=== PATIENT | female | born 1965 | race Asian ===

== ENCOUNTER → 2016-11-10 | Outpatient (CLI) | payer BC ==
--- NOTE | 2016-11-11 09:11 | RADRPT ---
PROCEDURE: XR right knee. CLINICAL INDICATION: Knee pain TECHNIQUE: AP weightbearing, PA weightbearing, lateral weightbearing and sunrise views are availab le for review. COMPARISON: None available FINDINGS: There is mild to moderate osteoarthrosis involving the medial tibial femoral compartment, lateral ti bial femoral compartment and patellofemoral compartment. This is associated with joint space narrowi ng, subchondral sclerosis and osteophytosis.. There is a small suprapatellar joint effusion. There is otherwise normal mineralization, architecture and alignment. No fractures are identified. No osseous lesions are identified. The soft tissues are unremarkable. IMPRESSION: Mild to moderate osteoarthrosis involving the medial tibial femoral compartment, lateral tibial femo ral compartment and patellofemoral compartment. Small suprapatellar joint effusion RPTAT: HGDB .Jericho Brown MD, MD Date Time Electronically viewed and signed by .Jericho Brown MD, on 11/11/2016 09:11 .B/
--- NOTE | 2016-11-11 09:12 | RADRPT ---
PROCEDURE: XR Chest. CLINICAL INDICATION: Preoperative chest TECHNIQUE: Chest PA. COMPARISON: No comparison available. FINDINGS: The mediastinal structures are unremarkable. The heart is normal in size and configuration. The pu lmonary vascularity is normal. The lung laureano are unremarkable. No consolidation is identified. The pleural spaces are unremarkable. The axial skeleton is unremarkable. IMPRESSION: No active intrathoracic disease. RPTAT: HGDB .Jericho Brown MD, MD Date Time Electronically viewed and signed by .Jericho Brown MD, on 11/11/2016 09:11 .B/
== END | disposition home or self-care (01) ==
LOC: HKI 11:25
PROVIDERS: ATTEND Orthopaedic Surgery
DX: M25.561 Pain in right knee (principal); S83.231D Complex tear of medial meniscus, current injury, right knee, subsequent encounter; S83.271D Complex tear of lateral meniscus, current injury, right knee, subsequent encounter
CPT/HCPCS: 71010; 73564; G0463

== ENCOUNTER 2016-11-16 06:10 | Day surgery (SDC) | payer BC ==
[2016-11-15 15:11] VITALS: BMI 26.8
[~2016-11-16] VITALS: Ht 165.1 cm; Wt 74.0 kg
[2016-11-16] VITALS (15 sets, daily range): BP systolic 115–147; BP diastolic 60–80; PULSE 52–66; RESP 12–20; Ht 165.1 cm; Wt 74.0 kg
[~2016-11-16 06:10] MED LIST: CEFAZOLIN 2GM/50 ML (PMX) 50 ML X1 BEFORE INCISION IVPB ONE; CELECOXIB 400 MG PO X1 DOSE PO ONE; LACTATED RINGER'S 1,000 ML IV SCH; PREGABALIN 300 MG PO X1 PO ONE; oxyCODONE (CR) 10 MG TAB [oxyCONTIN] X1 DOSE PO ONE; traMADOL 50 MG TAB X 1 DOSE PO ONE
[2016-11-16] MEDS ORDERED: EPHEDrine SULFATE 50 MG/5 ML SYG ONE (07:00)
--- NOTE | 2016-11-16 07:25 | HPN ---
Date/Time of Note Date/Time of Note DATE: 11/16/16 TIME: 07:24 Interval H&P Admission Note Pt. seen H&P reviewed: No system changes No change from H&P on 11/12/16 by JAYLAN Dawn MD November 16, 2016 07:25
[2016-11-16] MEDS ORDERED: PROPOFOL 20 ML ONE (09:36)
[2016-11-16] MEDS ORDERED: MIDAZOLAM 1 MG/ML 2 ML INJ ONE (09:37)
[2016-11-16] MEDS ORDERED: FENTAnyl 50 MCG/ML VIAL ONE (09:37)
[2016-11-16] MEDS ORDERED: LIDOCAINE 1% (MDV) 20 ML INJ ONE (09:37)
[2016-11-16] MEDS ORDERED: KETOROLAC 30 MG INJ ONE ×2 (09:39→10:48)
[2016-11-16] MEDS ORDERED: morphine SULFATE/PF (10 MG/10 ML) INJ ONE (09:39)
[2016-11-16] MEDS ORDERED: ROPIVACAINE 0.5 % 30 ML VIAL ONE (09:39)
[2016-11-16] MEDS ORDERED: LIDOCAINE 0.5%/EPI (MDV) 50 ML INJ ONE (09:51)
[2016-11-16] MEDS ORDERED: PHENYLephrine (100 MCG/ML) 5ML SYG ONE (09:59)
[2016-11-16] MEDS ORDERED: ONDANSETRON 4 MG INJ ONE (10:00)
[2016-11-16] MEDS ORDERED: DEXAMETHASONE 4 MG/ML 1 ML INJ ONE (10:00)
[2016-11-16] MEDS ORDERED: FAMOTIDINE 20 MG INJ ONE (10:00)
[2016-11-16] MEDS ORDERED: morphine SULFATE/PF (10 MG/10 ML) INJ EPI ONE (10:08)
[2016-11-16] MEDS ORDERED: ROPIVACAINE 0.5 % 30 ML VIAL INJ ONE (10:08)
[2016-11-16] MEDS ORDERED: LIDOCAINE 0.5%/EPI (MDV) 50 ML INJ INJ ONE (10:08)
[2016-11-16] MEDS ORDERED: KETOROLAC 30 MG INJ INJ ONE (10:08)
[2016-11-16] MEDS ORDERED: HYDROmorphONE (0.2 MG/ML) 10ML SYG IV PRN ×2 (11:00)
[2016-11-16] MEDS ORDERED: MEPERIDINE 25 MG INJ IV PRN (11:00)
[2016-11-16] MEDS ORDERED: DIPHENHYDRAMINE 50 MG INJ IV PRN (11:00)
[2016-11-16] MEDS ORDERED: PROCHLORPERAZINE 10 MG INJ IV PRN (11:00)
--- NOTE | 2016-11-16 11:24 | OPR ---
Date/Time of Note Date/Time of Note DATE: 11/16/16 TIME: 11:22 Operative Report Free Text/Dictation Dictation # [id number] Procedure Date: November 16, 2016 Preoperative Diagnosis Right Knee Medial and Lateral Meniscal Tears Postoperative Diagnosis Same Operation Performed Right Knee A/S and partial medial and lateral menisectomies Surgeon: JAYLAN CRAFT MD Anesthesia: general Anesthesiologist: BETTY GUPTA DO Tourniquet Time: None Estimated Blood Loss: none Specimens None Tubes/Drains None Complications: None Pt Condition Post Procedure: stable Disposition: PACU JAYLAN CRAFT MD November 16, 2016 11:23
--- NOTE | 2016-11-16 12:11 | OPR ---
DATE OF OPERATION: 11/16/2016 PREOPERATIVE DIAGNOSIS: Right knee medial and lateral meniscal tears. POSTOPERATIVE DIAGNOSIS: Right knee medial and lateral meniscal tears. OPERATION PERFORMED: Right knee arthroscopy, partial medial and lateral meniscectomies. SURGEON: Jaylan Carr MD ANESTHESIOLOGIST: Dr. Fraire. ANESTHESIA: General endotracheal intubation. TOURNIQUET TIME: 0 minutes. ESTIMATED BLOOD LOSS: Scant. INTRAVENOUS FLUIDS: 1 liter crystalloid. SPECIMENS: None. DRAINS: None. COMPLICATIONS: None. DISPOSITION: Patient tolerated the procedure well and was taken to the recovery room in stable cond ition, good backup. INDICATIONS: The patient is a 51-year-old woman who has had progressive worsening pain in the right knee with mechanical symptoms of catching and popping. She has some mild arthritic changes on x-ra y, but still a well-preserved joint space. MRI demonstrated medial and lateral meniscal tears. I f elt she would benefit from a knee arthroscopy and partial medial and lateral meniscectomies. The ri sks, benefits, alternatives of the procedure were explained in detail to the patient. I explained t he risks to include but not be limited to bleeding, infection, pain, stiffness, neurovascular injur y, possible numbness, weakness, and/or paralysis anywhere from the knee down to the toes, fracture, ligamentous injury, need for additional future surgery including possible total knee arthroplasty, w ound healing problems, blood clots, pulmonary embolism, and anesthetic complications such as heart a ttack, stroke, GI bleed, pneumonia and/or . Ample time was allowed for the patient to ask ques tions, all of which were addressed and answered. She understood the risks involved and wished to pr oceed. Informed consent was signed prior to the procedure. DESCRIPTION OF PROCEDURE: The right knee was initialed with a marking pen in the preoperative holdi ng area to identify the correct operative site. The patient was then brought to the operating room and transferred [facility] to the operating table where she was anesthetized and intub ated. Time out was performed to confirm the right side was the correct operative site. She was giv en 2 grams of intravenous Ancef within 1 hour prior to the incision. A tourniquet was placed on the right proximal thigh. The superolateral aspect of the right knee was prepped with Betadine and inj ected with 30 mL of 0.5% ropivacaine into the knee joint. The entire right knee and lower extremity were prepped and draped in the usual sterile fashion. Standard arthroscopic portal incisions were made, one inferolateral and one inferomedial. The arthr oscope was introduced into the inferolateral portal and the arthroscopy initiated. 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 The patella tracked well with no tilt or subluxation. The medial and lateral gutters were inspected and there were no loose bodies or synovitis. There were some peripheral osteophytes noted along the medial femoral condyle and lateral femoral condyle. There was also a focal area of grade IV chondromalacia along the ante rior border of the lateral femoral condyle. The medial compartment was then inspected and there was a tear of the posterior horn of the medial meniscus that was debrided back to a stable edge with a combination of biters, jere and Arthrocare wand. It was probed and was stable. There was some f ocal grade III chondromalacia along the weightbearing aspect of the medial femoral condyle. The inn er trochlear notch was inspected. ACL and PCL were in normal position with no evidence of tearing. There was a large fragment of lateral meniscus that was flipped into the notch. This was debrided back to a stable edge with a combination of jere and biters. This tear extended all the way from the anterior horn to the body. There was an extensive fragment that also extended into the lateral gutter which was debrided back with the shaver and Arthrocare wand. The lateral meniscus was probe d and stable. The lateral femoral condyle had some mild grade II chondromalacia and there was some grade III chondromalacia along the lateral tibial plateau. At this point, the arthroscopy was compl eted. The knee was irrigated through the arthroscope until the egress of fluid was free of meniscal fragments and blood. The instruments were removed. The knee was injected with 0.5% ropivacaine, 4 mg Duramorph and 30 mg Toradol. The portal incisions were closed with interrupted 3-0 Monocryl and 3-0 Prolene in a vertical mattress fashion. Skin edges were sealed with Dermabond. The wounds wer e covered with Adaptic, 4 x 4's and wrapped with sterile cast padding and Luis Antonio wrap. The patient was awakened, extubated, and taken to the recovery room in stable condition. Dictated By: JAYLAN RUIZ/FARHANA Conf#: [id number] DID#: [id number]
== END 2016-11-16 13:45 | disposition home or self-care (01) ==
LOC: SDS 06:10
PROVIDERS: ATTEND Orthopaedic Surgery
DX: M23.221 Derangement of posterior horn of medial meniscus due to old tear or injury, right knee (principal); M23.200 Derangement of unspecified lateral meniscus due to old tear or injury, right knee
CPT/HCPCS: 29880; 84703; 87081; J1100; J1885; J2175; J2250; J2274; J2370; J2405; J2795; J3010

== ENCOUNTER → 2016-11-24 | Outpatient (CLI) | payer BC ==
--- NOTE | 2016-11-24 10:57 | HKNOTE ---
DATE OF SERVICE: 11/24/2016 INTERVAL HISTORY: The patient presents today for her first postoperative evaluation. She is 8 days status post right knee arthroscopy, partial medial and lateral meniscectomy. She is doing well overall. She has had some mild discomfort, but denies any significant pain. She denies any fevers or chills. She has not needed pain medication and has been taking the Mobic only. She is ambulatory without any assistive devices. She presents today for her first postoperative evaluation. PHYSICAL EXAMINATION: Today, she is alert and oriented x4 and in no acute distress. Exam of the incisions demonstrate them to be clean, dry and intact. She has some mild ecchymosis over the medial portal hole. Her range of motion is 0-130 degrees. There is a trace effusion. Varus and valgus forces are stable. Compartments are soft. Homans sign is negative. She is neurovascularly intact distally. ASSESSMENT: Eight days status post right knee arthroscopy partial medial and lateral meniscectomy PLAN: The sutures were removed today and Steri-Strips were applied. She is weightbearing as tolerated. We will begin an outpatient physical therapy program 2 to 3 times a week for a period of 4 weeks. We will see her back in 4 weeks for repeat evaluation. If there are any concerns, she is to call the office in the meantime. Dictated By: KARISHMA CINTRON for JAYLAN MCCRACKEN/FARHANA Conf#: [id number] DID#: [id number] MTDD
== END | disposition home or self-care (01) ==
LOC: HKI 08:38
PROVIDERS: ATTEND Orthopaedic Surgery
DX: Z47.89 Encounter for other orthopedic aftercare (principal)

== ENCOUNTER → 2016-12-22 | Outpatient (CLI) | payer BC | END | disposition home or self-care (01) | LOC: HKI 08:44 | PROVIDERS: ATTEND Orthopaedic Surgery | DX: Z47.89 Encounter for other orthopedic aftercare (principal); S83.231D Complex tear of medial meniscus, current injury, right knee, subsequent encounter; S83.271D Complex tear of lateral meniscus, current injury, right knee, subsequent encounter ==